=== PATIENT | male | born 1955 | race Caucasian/White ===

== ENCOUNTER 2018-10-13 12:39 | Emergency (ER) | payer OTHER ==
[2018-10-13] MEDS ORDERED: fentaNYL 100 MCG/2 ML INJ NASAL ONE (13:47)
[2018-10-13] MEDS ORDERED: CEPHALEXIN 500 MG CAP PO ONE (15:24)
[2018-10-13] MEDS ORDERED: TDAP ADULT 0.5 ML INJ (BOOSTRIX) IM ONE (15:24)
--- NOTE | 2018-10-13 15:28 | EDPHY ---
H & P Stated Complaint: mechanical fall, right elbow and shoulder pain - Personal History Current Tetanus/Diphtheria Vaccine: Unsure Current Tetanus Diphtheria and Acellular Pertussis (TDAP): Unsure - Medical/Surgical History Hx Asthma: No Hx Chronic Respiratory Disease: No Hx Diabetes: No Hx Cardiac Disease: No Hx Renal Disease: No Hx Cirrhosis: No Hx Alcoholism: No Hx HIV/AIDS: No Hx Splenectomy or Spleen Trauma: No Other PMH: htn, spinal stenosis, glaucoma - Social History Smoking Status: Never smoked Time Seen by Provider: 10/13/18 12:40 HPI/ROS: Chief complaint: Trip and fall with right arm injury History of present illness: This is a 63-year-old male who presents with EMS after sustaining a trip and fall injuring his right arm. Patient misstepped on the sidewalk falling over onto his arm. He cut his elbow. However it is shoulder that is causing the most pain. Mild numbness in the right hand. He denies trauma to other parts of the body including the head and neck. No loss of consciousness. Again this was a trip and fall, no preceding events to suggest a syncopal episode such as dizziness. Review of systems: A 10 point review of systems was obtained and other than described above was negative (Brendan Mcdaniels) - Physical Exam Exam: General Appearance: Alert, nontoxic Eyes: PERRLA ENT: No hemotympanum, no mckinley sign, no raccoon eyes Respiratory: Lungs clear to auscultation bilaterally Cardiac: Regular rate and rhythm. Neurological: Alert and oriented x4. Strength and sensation intact in the upper and lower extremities including distal to the right arm injuries. Skin: There is a 1.5 cm laceration to the right olecranon region with associated edema. Musculoskeletal: The head is nontender. The spine is nontender along its entire length, no crepitus, no bony deformity, no step-off. Right shoulder is tender and he cannot move it. The right elbow is nontender and he is moving it well. The rest of the right upper extremity in the other extremities are unremarkable. He is ambulating well. (Brendan Mcdaniels) Constitutional: Initial Vital Signs Temperature (C) 36.4 C 10/13/18 12:48 Heart Rate 74 10/13/18 12:48 Respiratory Rate 16 10/13/18 12:48 Blood Pressure 165/110 H 10/13/18 12:48 O2 Sat (%) 95 10/13/18 12:48 O2 Delivery Mode Room Air Allergies/Adverse Reactions: No Known Allergies Allergy (Unverified 10/13/18 12:52) Home Medications: Medication Instructions Recorded Cephalexin [Keflex (*)] 500 mg PO TID 7 Days cap 10/13/18 Gabapentin 10/13/18 Lisinopril 10/13/18 Medical Decision Making - Diagnostics Imaging: Discussed imaging studies w/ call center rn Radiologist - Diagnostics Imaging Results: Imaging Impressions Shoulder X-Ray 10/13/18 12:44 Impression: Anterior shoulder dislocation. Elbow X-Ray 10/13/18 12:45 Impression: Olecranon bursitis. No fracture. Shoulder X-Ray 10/13/18 14:45 Impression: Good anatomic reduction. Procedures: Procedure: Dislocation reduction. The shoulder was reduced in the usual fashion without complications. Post reduction the patient's neurovascular exam is normal. Post reduction x-ray demonstrates reduction of the joint to the anatomic position. The procedure was performed by myself. Procedure: Laceration repair. Verbal consent was obtained from the patient. The 1.5 cm laceration on the right olecranon region was anesthetized in the usual fashion. The wound was irrigated, draped and explored to its base with a gloved finger. There were no deep structures involved. No tendon injury was identified. The wound was repaired with 4 0 Ethilon, 3 simple interrupted sutures. The wound repair was simple. The procedure was performed by myself. Procedure: Splint placement. A sling was applied. After application of the splint I returned and re- examined the patient. The splint was adequately immobilizing the joint and distal to the splint the patient's circulation and sensation was intact. (Brendan Mcdaniels) ED Course/Re-evaluation: Patient seen under the supervision of my secondary supervising physician Dr. Carmen Santizo. Patient presents after a mechanical trip and fall injuring his right shoulder. He has a right shoulder dislocation that has been reduced. He has a laceration to his right elbow that has been cleaned, repaired and dressed. He has been placed in a sling. As the wound does extend into the bursa region of the right elbow I will place him on antibiotics. By history and physical exam I do not appreciate evidence of further trauma. Patient will be discharged home. He is referred to Orthopedics for recheck. Home care is discussed. Return precautions are given. Patient voiced understanding and agreement with plan. (Brendan Mcdaniels) Differential Diagnosis: Included but not limited to contusion, sprain or strain, bony fracture, joint dislocation (Brendan Mcdaniels) Other Provider: The patient was evaluated and managed by the Physician Peanut Butter Maker. My co- signature indicates that I have reviewed this chart and I agree with the findings and plan of care as documented. I am the secondary supervising physician. (Carmen Santizo) - Data Points Medications Given: Discontinued Medications Cephalexin HCl (Keflex) 500 mg PO EDNOW ONE PRN Reason: Protocol Stop: 10/13/18 15:25 Last Admin: 10/13/18 15:43 Dose: 500 mg Diphtheria/Tetanus/Acell Pertussis (Boostrix) 0.5 ml IM .ONCE ONE Stop: 10/13/18 15:25 Last Admin: 10/13/18 15:42 Dose: 0.5 ml Fentanyl (Sublimaze) 100 mcg NASAL EDNOW ONE Stop: 10/13/18 13:48 Last Admin: 10/13/18 13:58 Dose: 100 mcg Departure - Departure Disposition: Home, Routine, Self-Care Clinical Impression: Shoulder dislocation Qualifiers: Encounter type: initial encounter Laterality: right Qualified Code(s): S43.004A - Unspecified dislocation of right shoulder joint, initial encounter Arm laceration Qualifiers: Encounter type: initial encounter Laterality: right Qualified Code(s): S41.111A - Laceration without foreign body of right upper arm, initial encounter Condition: Good Instructions: Care For Your Stitches (ED), Shoulder Dislocation (ED), Laceration (ED) Additional Instructions: Follow-up with orthopedics and your primary care doctor this week for continued evaluation and care Take antibiotics as prescribed until finished even feeling better Change dressing on your wound twice daily Stitches to be removed in 12-14 days If symptoms worsen or new symptoms develop return to the emergency room for recheck Referrals: Neetu Crouch PA [Primary Care Provider] - As per Instructions Jewel Aj MD [Medical Doctor] - As per Instructions Prescriptions: Cephalexin [Keflex (*)] 500 mg PO TID 7 Days cap
[2018-10-13 16:10] VITALS: BP 162/105
== END 2018-10-13 16:08 | disposition home or self-care (01) ==
LOC: EDUNIT#
DX: S43.014A Anterior dislocation of right humerus, initial encounter (principal); S51.011A Laceration without foreign body of right elbow, initial encounter; W01.0XXA Fall on same level from slipping, tripping and stumbling without subsequent striking against object, initial encounter; Y92.89 Other specified places as the place of occurrence of the external cause; Y93.9 Activity, unspecified; Y99.9 Unspecified external cause status; Z23 Encounter for immunization
CPT/HCPCS: A4565; J3010